=== PATIENT | female | born 1945 | race Caucasian/White ===

== ENCOUNTER 2018-06-02 08:38 | Outpatient (CLI) | payer OTHER ==
[~2018-06-02 08:38] MED LIST: ANTIVERT25 M1 PO; COZAAR25 MG PO; CRESTOR5 MG PO; LIPOFLAVOVIT CA1 TAB PO
== END 2018-06-02 09:11 | disposition home or self-care (01) ==
LOC: RAD 08:38 → MRI 09:15
DX: Z12.31 Encounter for screening mammogram for malignant neoplasm of breast (principal); Z87.898 Personal history of other specified conditions; N64.4 Mastodynia; M54.5 Low back pain; Z96.81 Presence of artificial skin; M41.86 Other forms of scoliosis, lumbar region
CPT/HCPCS: 72148

== ENCOUNTER 2021-09-26 11:26 | Outpatient (CLI) | payer OTHER | END 2021-09-26 11:27 | disposition home or self-care (01) | LOC: RAD 11:26 | PROVIDERS: ATTEND General Practice | DX: R91.1 Solitary pulmonary nodule (principal) ==

== ENCOUNTER 2022-07-08 11:56 | Outpatient (CLI) | payer OTHER | END 2022-07-08 12:03 | disposition home or self-care (01) | LOC: SONOGRAMA 11:56 | PROVIDERS: ATTEND General Practice | DX: M25.511 Pain in right shoulder (principal) ==

== ENCOUNTER 2024-01-30 13:51 | Outpatient (CLI) | payer OTHER ==
[2024-01-30 14:39] LABS: ALBUMIN 3.7 gm/dL (3.4-5.0); CALCIUM 9.5 mg/dL (8.5-10.1); CREATININE SERUM 1.06 mg/dL (0.55-1.02); GFR 49.88; PHOSPHOROUS 3.9 mg/dL (2.5-4.9); POTASSIUM 4.31 mEq/L (3.5-5.1)
== END 2024-01-30 18:05 | disposition home or self-care (01) ==
LOC: LAB 13:51
PROVIDERS: ATTEND Otolaryngology
DX: D37.02 Neoplasm of uncertain behavior of tongue (principal); G83.20 Monoplegia of upper limb affecting unspecified side

== ENCOUNTER 2024-02-02 07:26 | Outpatient (CLI) | payer OTHER | END 2024-02-02 07:35 | disposition home or self-care (01) | LOC: TOM 07:26 | PROVIDERS: ATTEND Otolaryngology | DX: D37.02 Neoplasm of uncertain behavior of tongue (principal) | CPT/HCPCS: 70491; Q9965 ==